=== PATIENT | male | born 1985 | race Two or more races ===

== ENCOUNTER → 2024-02-19 11:54 | Outpatient (REF) | payer OTHER, SELFPAY ==
[2024-02-19 14:30] LABS: ALT (SGPT) 22 U/L (0-50); AST (SGOT) 27 U/L (17-59); Albumin 4.7 g/dl (3.5-5.0); Alkaline Phosphatase 50 U/L (38-126); Direct Bilirubin 0.3 mg/dl (0.0-0.4); Total Bilirubin 0.8 mg/dl (0.2-1.3); Total Protein 7.7 g/dl (6.3-8.2)
[2024-02-19 15:22] LABS: Hepatitis C Antibody Negative (Negative)
[2024-02-22 07:04] LABS: HCV Quant by NAAT IU/mL Not Detected; HCV Quant by NAAT Interp Not Detected (Not Detected); HCV Quant by NAAT Log IU/mL Not Detected log IU/mL
== END ==
LOC: REG 11:54
PROVIDERS: ATTENDING PHYSICIAN Nurse Practitioner Family
DX: Z23 Encounter for immunization (principal)
CPT/HCPCS: 36415; 80076; 86803; 87522